=== PATIENT | female | born 1950 | race Caucasian/White ===

== ENCOUNTER 2016-04-18 02:47 | Observation (INO) | payer MEDICAID, MEDICARE ==
[~2016-04-18] VITALS: Ht 162.6 cm; Wt 52.4 kg
[2016-04-18] MEDS ORDERED: ASPIRIN 81 MG CHEW TAB ONE (03:20)
[2016-04-18] MEDS ORDERED: ACETAMINOPHEN 325 MG TAB ONE (03:20)
[2016-04-18] MEDS ORDERED: AZITHROMYCIN 500 MG VIAL IV ONE (05:19)
[2016-04-18] MEDS ORDERED: CEFTRIAXONE 1 GM VIAL ONE (05:20)
[2016-04-18] MEDS ORDERED: SODIUM CHLORIDE 0.9% 1,000 ML ONE (05:20)
[2016-04-18] MEDS ORDERED: SODIUM CHLORIDE 0.9% 100 ML IV ONE (05:20)
[2016-04-18] MEDS ORDERED: SODIUM CHLORIDE 0.9% 250 ML IV ONE (05:20)
[2016-04-18] MEDS ORDERED: MORPHINE 2 MG/ML SYR IV PRN (05:55)
[2016-04-18] MEDS ORDERED: ACETAMINOPHEN 325 MG TAB PO PRN (05:55)
[2016-04-18 06:55] VITALS: BP_SYST 124; RESP 18; TEMP 98.5
[2016-04-18 06:56] VITALS: Ht 162.6 cm; Wt 52.4 kg
[2016-04-18] MEDS: DUONEB INH SCH ×3 (08:03→14:44)
[2016-04-18 08:18] VITALS: RESP 18
[2016-04-18 08:33] VITALS: BP_SYST 106; RESP 18; TEMP 98.4
[2016-04-18] MEDS ORDERED: FLUDROCORTISONE 0.1 MG TAB PO SCH (10:20)
[2016-04-18] MEDS ORDERED: METOPROLOL TART 25 MG TAB PO SCH (10:20)
[2016-04-18 12:09] VITALS: BP_SYST 108; RESP 18; TEMP 98.1
[2016-04-18] MEDS ORDERED: TRAMADOL 50 MG TAB PO SCH (12:20)
[2016-04-18] MEDS ORDERED: *PINK BRACELET XX ONE (12:35)
[2016-04-18 14:31] VITALS: BP_SYST 108; RESP 18; TEMP 98.1
[2016-04-18] MEDS ORDERED: *HOME MEDS KEPT IN PHARMACY XX SCH (20:00)
[2016-04-19] MEDS ORDERED: PREDNISONE 20 MG TAB PO ONE (09:00)
== END 2016-04-18 13:05 | disposition home or self-care (01) ==
LOC: ENRESERVTM → ENRESERVDT → ER 02:47 → EMR 05:42 → ENPENDDIS 05:42 → PCU2 06:43
PROVIDERS: ADMIT Internal Medicine; ATTEND Internal Medicine
DX: R07.9 Chest pain, unspecified (principal); J44.9 Chronic obstructive pulmonary disease, unspecified; M06.9 Rheumatoid arthritis, unspecified; Z79.899 Other long term (current) drug therapy; Z87.891 Personal history of nicotine dependence; K21.9 Gastro-esophageal reflux disease without esophagitis; F41.1 Generalized anxiety disorder; Z96.653 Presence of artificial knee joint, bilateral
CPT/HCPCS: 36415; 36600; 71010; 80053; 81001; 82550; 82553; 82803; 83605; 83735; 84484; 85025; 85610; 85730; 87040; 87077; 87088; 87804; 93005; 94640; 96361; 96365; 96367; 99285; G0378; J0696; J7050; 94799